=== PATIENT | male | born 1970 | race Caucasian/White ===

== ENCOUNTER → 2018-08-26 | Outpatient (CLI) | payer BC ==
[~2018-08-26] MED LIST: NABUMETONE 750750 M1 PO; PROAIR HFA8.5 GM; ZESTRIL20 MG PO
--- NOTE | 2018-09-02 14:48 | TST ---
[place] [address] T[employer]MI[employer] STRESS TEST Name: SVETLANA BOSCH Room: [facility]#: [id number] Admission: 08/26/18 Attend Phys: Samantha. BRIONNA Rouse Discharge: Date of : 72 Date of Service: 08/27/18 1513 Report #: [id number] THIS REPORT FOR: //name// CC: Samantha. Argelia Pace DATE OF SERVICE: 08/26/2018 EXERCISE STRESS TEST ORDERING PHYSICIAN: Dr. Lisha Stout. Resting ECG shows a sinus rhythm. During exercise, they are normal ST segments. There are no ST segment changes. Hemodynamics: Resting blood pressure was 80 to 134/88 with heart rate of 82, peak blood pressure 196/74, heart rate 182, recovery blood pressure 119/84 and heart rate 109. IMPRESSION: 1. Clinical portion negative. 2. Electrocardiographic portion negative. 3. Exercise capacity is reduced. The patient exercised for 8 minutes and 44 seconds, 10.16 METS. <ELECTRONICALLY SIGNED> By: Campbell Valadez MD, [facility] 09/02/18 1448 1513 [id number] Campbell Valadez MD, FACC /nt
== END ==
LOC: M.CRD 14:34
DX: R06.02 Shortness of breath (principal); R07.9 Chest pain, unspecified

== ENCOUNTER → 2019-07-31 | Outpatient (CLI) | payer BC | LOC: M.CT 07:06 | DX: R06.00 Dyspnea, unspecified (principal); R07.89 Other chest pain ==